=== PATIENT | female | born 1975 | race Caucasian/White ===

== ENCOUNTER 2018-09-12 10:32 | Day surgery (SDC) | payer OTHER ==
[2018-09-12] VITALS (14 sets, daily range): BP systolic 111–161; BP diastolic 60–90; PULSE 60–88; RESP 12–20; Ht 157.5 cm; Wt 59.9 kg
[~2018-09-12] VITALS: Ht 157.5 cm; Wt 59.9 kg
[~2018-09-12 10:32] MED LIST: CEFAZOLIN 2 GM/50 ML (PMX) 50 ML IVPB ONE; SOD CHLORIDE 0.9% 1,000 ML IV ONE
--- NOTE | 2018-09-12 13:53 | PREAC ---
Date/Time of Note Date/Time of Note DATE: 09/12/18 TIME: 13:52 Anesthesia Eval and Record Evaluation Time Pre-Procedure Interview DATE: 09/12/18 TIME: 13:52 Age 43 Sex female NPO: 8 hrs Preoperative diagnosis left inguinal hernia Planned procedure left inguinal hernia repair Past Medical History Past Medical History: None Surgery & Anesthesia Issues No known issue Meds Anticoagulation: No Beta Iliana within 24 hr: No Reason Beta Iliana not given: Pt. not on B-Iliana No Active Prescriptions or Reported Meds Current Medications Sodium Chloride 1,000 ml @ 75 mls/hr [id number] ONCE IV ; Start 09/12/18 at 05:30; Stop 09/12/18 at 18:49 Meds reviewed: Yes Allergies Coded Allergies: No Known Allergy (Unverified , 09/12/18) Allergies Reviewed: Yes Labs/Studies Labs Reviewed: Reviewed by anesthesiologist Result Diagram: 09/12/18 1100 09/12/18 1100 Laboratory Tests 09/12/18 11:00 test: Negative Pre-procedure Exam Last vitals Vital Signs Date Temp Pulse Resp B/P (MAP) Pulse Ox O2 O2 Flow FiO2 Time Delivery Rate 09/12/18 98.6 80 16 161/90 100 Room Air 11:18 (113) Airway: Adequate mouth opening, Adequate thyromental dist Mallampati: Mallampati I Teeth: Normal Lung: Normal Heart: Normal ASA Physical Status ASA physical status: 1 Emergency: None Planned Anesthetic General/MAC: LMA Planned Pain Management Parenteral pain med Pre-operative Attestations Prior to commencing anesthesia and surgery, the patient was re-evaluated, there was verification of: *The patient's identity *The results of appropriate recent lab work and preoperative vital signs *The above evaluation not changing prior to induction *Anesthetic plan, risk benefits, alternative and complications discussed with patient/family; questions answered; patient/family understands, accepts and wishes to proceed. IZA BLAIR Sep 12, 2018 13:53
[2018-09-12] MEDS ORDERED: BUPIVACAINE 0.25% (MPF) 30 ML INJ ONE (13:58)
[2018-09-12] MEDS ORDERED: POLYMYXIN/BACITRACIN 1L IRRIG ONE (13:59)
[2018-09-12] MEDS ORDERED: PROPOFOL 20 ML ONE (14:09)
[2018-09-12] MEDS ORDERED: DEXAMETHASONE 4 MG/ML 5 ML INJ ONE (14:14)
[2018-09-12] MEDS ORDERED: CEFAZOLIN 1 GM INJ ONE (14:14)
[2018-09-12] MEDS ORDERED: ONDANSETRON 4 MG INJ ONE (14:14)
[2018-09-12] MEDS ORDERED: LIDOCAINE 2% (SDV) 5 ML INJ ONE (14:14)
[2018-09-12] MEDS ORDERED: ROCURONIUM 50 MG INJ ONE (14:14)
[2018-09-12] MEDS ORDERED: NEOSTIGMINE 3 MG/3 ML SYRINGE ONE (14:54)
[2018-09-12] MEDS ORDERED: GLYCOPYRROLATE 0.4 MG INJ ONE (14:54)
--- NOTE | 2018-09-12 15:06 | OPR ---
Date/Time of Note Date/Time of Note DATE: 09/12/18 TIME: 15:04 Operative Report Procedure Date: Sep 12, 2018 Preoperative Diagnosis left incarcerated inguinal hernia Postoperative Diagnosis same Operation/Procedure Performed 1. open left incarcerated inguinal hernia repair with ultrapro plug mesh 2. therapeutic injection of subcutaneous local anesthesia Surgeon see signature line [employer] none Anesthesia Type: general Estimated Blood Loss: 0 - 10 ml's Transfusion none Specimen none Grafts/Implants none Complications none Pt Condition Post Procedure: stable Indications This is a 43-year-old female with symptomatic incarcerated left inguinal hernia. She requires surgical repair. Risks alternatives benefits and personal were discussed the patient. Patient expressed understanding and consents to the operation. Procedure Description Patient is taken to the OR and prepped and draped in usual sterile fashion. Surgical time was performed. IV antibiotics given. Left inguinal oblique incision was made at the 10 blade. Dissection with cautery skin onto externally fascia. The externally fascia is open with a 15 blade. This incision was extended medial fairly lateral superiorly with Metzenbaum scissors. Indirect and direct hernia are identified and lysis of adhesions performed and the hernia was manually reduced. The disc portion of the ultra pro hernia system mesh was then used to bolster and reduce this hernia. The disc is secured in place the running Prolene from the pubic tubercle along the shelving is unlimited. Fontaine periorly the disc is secured to enter oblique with interrupted Vicryl. Onlay mesh was secured in a similar fashion with a running oh plain from the pubic tubercle along the shelving is unlimited. Superiorly the onlay mesh was secured with interrupted 3-0 Vicryl. Externally fascia is closed with running 3-0 Vicryl. Luana's fascia is closed with interrupted 3-0 Vicryl. Skin is closed using inzorb observable skin stapler. Subcutaneous therapeutic local anesthesia was injected at the incision site. Steri-Strips and dry dressings were applied. Stanley JENKINS Sep 12, 2018 15:06
--- NOTE | 2018-09-12 15:09 | PAC ---
Date/Time of Note Date/Time of Note DATE: 09/12/18 TIME: 15:08 Post-Anesthesia Notes Post-Anesthesia Note Last documented vital signs Vital Signs Date Temp Pulse Resp B/P (MAP) Pulse Ox O2 O2 Flow FiO2 Time Delivery Rate 09/12/18 98.6 80 16 161/90 100 Room Air 1508 (113) Activity: WNL Respiratory function: WNL Cardiovascular function: WNL Mental status: Baseline Pain reasonably controlled: Yes Hydration appropriate: Yes Nausea/Vomiting absent: Yes IZA BLAIR Sep 12, 2018 15:09
[2018-09-12] MEDS ORDERED: LABETALOL HCL 20MG INJ IV PRN (15:30)
[2018-09-12] MEDS ORDERED: KETOROLAC 30 MG INJ IV PRN (15:30)
[2018-09-12] MEDS ORDERED: hydrALAzine 20 MG INJ IV PRN (15:30)
[2018-09-12] MEDS ORDERED: HYDROCODONE/APAP (5/325) TAB PO ONE (15:30)
[2018-09-12] MEDS ORDERED: MEPERIDINE 25 MG INJ IV PRN (15:30)
[2018-09-12] MEDS ORDERED: ONDANSETRON 4 MG INJ IV PRN (15:30)
[2018-09-12] MEDS ORDERED: ALBUTEROL 0.083% (NEB) 2.5 MG/3 ML AMP HHN PRN (15:30)
[2018-09-12] MEDS ORDERED: FENTAnyl 50 MCG/ML VIAL IV PRN ×3 (15:30)
[2018-09-12] MEDS ORDERED: DIPHENHYDRAMINE 50 MG INJ IV PRN (15:30)
[2018-09-12] MEDS ORDERED: HYDROmorphONE 1 MG/5 ML IV SYRINGE IV PRN ×3 (15:30)
[2018-09-12] MEDS ORDERED: METOCLOPRAMIDE 10 MG INJ IV PRN (15:30)
[2018-09-12] MEDS ORDERED: EPHEDrine 25 MG/5 ML SYG IV PRN (15:30)
[2018-09-12] MEDS ORDERED: OXYCODONE/ACETAMINOPHEN (5/325) TAB PO PRN ×2 (15:30)
== END 2018-09-12 18:50 | disposition home or self-care (01) ==
LOC: SDS 10:32
PROVIDERS: ATTEND Surgery
DX: K40.30 Unilateral inguinal hernia, with obstruction, without gangrene, not specified as recurrent (principal)
CPT/HCPCS: 49507; 80053; 84703; 85025; 85610; 85730; C1781; J0690; J1100; J1170; J1885; J2405; J2710; J2765; Z7512; Z7610